=== PATIENT | female | born 1970 | race Caucasian/White ===

== ENCOUNTER 2017-05-13 11:37 | Day surgery (SDC) | payer BC ==
[2017-05-13] MEDS ORDERED: PROPOFOL 20 ML (13:26)
[2017-05-13] MEDS ORDERED: LIDOCAINE 2% (SDV) 5 ML INJ (13:26)
[2017-05-13] MEDS ORDERED: FENTAnyl 50 MCG/ML VIAL (13:26)
[2017-05-13] MEDS ORDERED: MIDAZOLAM 1 MG/ML 2 ML INJ (13:27)
== END 2017-05-13 17:05 | disposition home or self-care (01) ==
LOC: GIL 11:37
DX: K44.9 Diaphragmatic hernia without obstruction or gangrene (principal); K21.0 Gastro-esophageal reflux disease with esophagitis; K29.70 Gastritis, unspecified, without bleeding
CPT/HCPCS: 43239; 84703; 87081